=== PATIENT | female | born 1955 | race Caucasian/White ===

== ENCOUNTER 2018-03-15 09:03 | Emergency (ER) | payer BC ==
[2018-03-15 09:29] VITALS: BP 132/64
--- NOTE | 2018-03-15 09:59 | UC ---
UC General HPI - HPI Summary HPI Summary: Pt presents with two c/o. 1. Pt c/o sudden onset of painful, itchy, blister rash on forehead and right eyelid and eye. 2. pt c/o burning with urination, vaginal discomfort, and redness. Pt was seen by performance improvement analyst porvider, given " antibiotic cream" , then given antifungal cream. Pt states pain improved after using antibiotic cream but has returned. - History of Current Complaint Chief Complaint: UCSkin Stated Complaint: SKIN CONCERN Time Seen by Provider: 03/15/18 09:51 Hx Obtained From: Patient Hx Last Menstrual Period: 2009 Onset/Duration: Sudden Onset, Lasting Days, Still Present, Worse Since - osnet Timing: Constant Onset Severity: Mild Current Severity: Moderate Pain Intensity: 4 Associated Signs & Symptoms: Positive: Dysuria, Other - rash face/forehead and right eye - Allergy/Home Medications Allergies/Adverse Reactions: Allergies Allergy/AdvReac Type Severity Reaction Status Date / Time azithromycin Allergy Rash Verified 03/15/18 09:33 erythromycin base Allergy Rash Verified 03/15/18 09:33 Penicillins Allergy Rash Verified 03/15/18 09:33 sulfamethoxazole Allergy Rash Verified 03/15/18 09:33 [From Bactrim] trimethoprim [From Bactrim] Allergy Rash Verified 03/15/18 09:33 Home Medications: Home Medications Albuterol HFA INHALER* [Ventolin HFA Inhaler*] 2 puff INH Q4H PRN 03/15/18 [ History Confirmed 03/15/18] Bisoprolol TAB* [Zebeta TAB*] 10 mg PO DAILY 03/15/18 [History Confirmed ] Calcium Carb, Citrate/Vit D3 [Calcium+D3 Gradual Releas] 1 tab PO DAILY [History Confirmed 03/15/18] Clotrimazole/Betamethasone* [Lotrisone Cream*] 1 applic TOPICAL BID 03/15/18 [ History Confirmed 03/15/18] Fluticasone NASAL SPRAY 50MCG* [Flonase NASAL SPRAY 50MCG*] 2 spray BOTH NARES DAILY PRN 03/15/18 [History Confirmed 03/15/18] Fluticasone-Salmeterol 250-50* [Advair Diskus 250-50*] 1 puff INH BID 03/15/18 [ History Confirmed 03/15/18] Furosemide TAB* [Lasix TAB*] 40 mg PO DAILY PRN 03/15/18 [History Confirmed 12/22] Glucosam/Chondr/Collagn/Hyalur [Th Glucosamine/Chondroiti] 1 cap PO DAILY [History Confirmed 03/15/18] LevoCETirizine TAB (NF) [Xyzal TAB (NF)] 5 mg PO DAILY PRN 03/15/18 [History Confirmed 03/15/18] Meclizine TAB* [Antivert 12.5 TAB*] 12.5 mg PO TID PRN 03/15/18 [History Confirmed 03/15/18] Mepolizumab (NF) [Nucala (NF)] 100 mg SC SEE INSTRUCTIONS 03/15/18 [History Confirmed 03/15/18] Montelukast Sodium TAB* [Singulair TAB*] 10 mg PO DAILY 03/15/18 [History Confirmed 03/15/18] Multivitamins/Minerals TAB* [Theragran/minerals TAB*] 1 tab PO DAILY 03/15/18 [ History Confirmed 03/15/18] Terconazole 20 gm VG QPM 03/15/18 [History Confirmed 03/15/18] Turmeric 400 mg PO DAILY 03/15/18 [History Confirmed 03/15/18] Zolpidem TAB* [Ambien TAB*] 5 mg PO BEDTIME PRN 03/15/18 [History Confirmed 12/22] celeCOXIB CAP* [CeleBREX CAP*] 200 mg PO DAILY PRN 03/15/18 [History Confirmed 03/15/18] PMH/Surg Hx/FS Hx/Imm Hx Previously Healthy: Yes - Surgical History Surgical History: Yes Surgery Procedure, Year, and Place: left mastectomy with reconstruction 1997. sinus surgery 2010. 2010 - Family History Known Family History: Positive: None, Non-Contributory Family History: no known cardio-vascular issues run in family lineage - Social History Occupation: Works From/At Home Lives: With Family Alcohol Use: Rare Substance Use Type: None Smoking Status (MU): Never Smoked Tobacco Have You Smoked in the Last Year: No - Immunization History Most Recent Influenza Vaccination: current Most Recent Pneumonia Vaccination: current Review of Systems All Other Systems Reviewed And Are Negative: Yes Constitutional: Positive: Fatigue Skin: Positive: Negative Eyes: Positive: Eye Redness, Other - rash ENT: Positive: Negative Respiratory: Positive: Negative Cardiovascular: Positive: Negative Gastrointestinal: Positive: Negative Genitourinary: Positive: Dysuria, Vaginal/Penile Burning, Vaginal/Penile Tenderness Motor: Positive: Negative Neurovascular: Positive: Negative Musculoskeletal: Positive: Negative Neurological: Positive: Negative Psychological: Positive: Negative Is Patient Immunocompromised?: No Physical Exam Triage Information Reviewed: Yes Appearance: Pain Distress Vital Signs: Initial Vital Signs Temp 97.6 F 03/15/18 09:21 Pulse 72 03/15/18 09:21 Resp 16 03/15/18 09:21 BP 132/64 03/15/18 09:21 Pulse Ox 97 03/15/18 09:21 Vital Signs Reviewed: Yes Eyes: Positive: Other: - scleritis right eye, raised vessicle on right eye, ENT Exam: Normal Dental Exam: Normal Neck exam: Normal Respiratory: Positive: No respiratory distress Musculoskeletal Exam: Normal Neurological Exam: Normal Psychological Exam: Normal Skin: Positive: Rashes - erythematous, raised with fluid filled vessicle on forehead right of center, that extends to right inner corner of eye and right eye lid and appears to be on right eye ball. Pt c/o the right eye is painful. Course/Dx - Differential Dx - Multi-Symptom Differential Diagnoses: Urinary Tract Infection, Other - vaginitis - Diagnoses Provider Diagnosis: Shingles rash, Vaginal pain Discharge - Sign-Out/Discharge Documenting (check all that apply): Patient Departure All imaging exams completed and their final reports reviewed: No Studies - Discharge Plan Condition: Stable Disposition: HOME Patient Education Materials: Shingles (ED), Vaginitis (ED) Referrals: Hannah Perez MD [Medical Doctor] - 03/15/18 Kenny Howe MD [Primary Care Provider] - If Needed Additional Instructions: PLEASE GO DIRECTLY TO DR. PEREZ'S OFFICE. PLEASE FOLLOW UP WITH YOUR MAKE READY MECHANIC PROVIDER SOON POSSIBLE. - Billing Disposition and Condition Condition: STABLE Disposition: Home
== END 2018-03-15 10:14 | disposition home or self-care (01) ==
LOC: UCCORT 09:03
DX: B02.9 Zoster without complications (principal); R10.2 Pelvic and perineal pain; Z88.0 Allergy status to penicillin; Z88.1 Allergy status to other antibiotic agents
CPT/HCPCS: 81003; 87491; 87591; 99212; G0463

== ENCOUNTER 2018-09-28 11:41 | Emergency (ER) | payer BC, OTHER ==
[2018-09-28 12:38] VITALS: BP 150/72
--- NOTE | 2018-09-28 12:43 | UC ---
Shortness of Breath HPI - HPI Summary HPI Summary: 63 year old female with a history of superficial phlebitis s/p surgical treatment last year who presents with bilateral lower leg pain and shortness of breath. She denies chest pain nor hemoptysis. She states the leg pain developed about two days ago and the shortness of breath while ambulating from the waiting room to the examining room. She denies any known history of DVT nor PE. Has never been on anticoagulants but dose take aspirin. - History of Current Complaint Chief Complaint: UCLowerExtremity Stated Complaint: BILATERAL LEG PAIN Time Seen by Provider: 09/28/18 12:42 Hx Obtained From: Patient Hx Last Menstrual Period: 2009 Onset/Duration: Gradual Onset Dyspnea At: Exertion Associated Signs & Symptoms: Positive: Calf Pain/Swelling - Risk Factors Pulmonary Embolism: Negative Cardiac: Negative - Allergy/Home Medications Allergies/Adverse Reactions: Allergies Allergy/AdvReac Type Severity Reaction Status Date / Time azithromycin Allergy Rash Verified 03/15/18 09:33 erythromycin base Allergy Rash Verified 03/15/18 09:33 Penicillins Allergy Rash Verified 03/15/18 09:33 sulfamethoxazole Allergy Rash Verified 03/15/18 09:33 [From Bactrim] trimethoprim [From Bactrim] Allergy Rash Verified 03/15/18 09:33 Home Medications: Home Medications Aspirin 81 mg CHEW TAB* [Aspirin Low Dose TAB*] 4 tab PO DAILY 09/28/18 [ History Confirmed 09/28/18] PMH/Surg Hx/FS Hx/Imm Hx Previously Healthy: Yes Respiratory History: Pneumonia - Chronic eosinophillic pneumonia - Surgical History Surgical History: Yes Surgery Procedure, Year, and Place: left mastectomy with reconstruction 1997. sinus surgery 2010. Novasure 2010. varicose vein surgery about 1 year ago. breast implant removed august 2018 - Family History Known Family History: Positive: None, Non-Contributory Family History: no known cardio-vascular issues run in family lineage - Social History Alcohol Use: Rare Substance Use Type: None Smoking Status (MU): Never Smoked Tobacco Have You Smoked in the Last Year: No - Immunization History Most Recent Influenza Vaccination: current Most Recent Pneumonia Vaccination: current Review of Systems All Other Systems Reviewed And Are Negative: Yes Constitutional: Positive: Negative Skin: Positive: Negative Eyes: Positive: Negative ENT: Positive: Negative Respiratory: Positive: Shortness Of Breath Cardiovascular: Positive: Negative Gastrointestinal: Positive: Negative Genitourinary: Positive: Negative Motor: Positive: Negative Neurovascular: Positive: Negative Musculoskeletal: Positive: Calf Tenderness Neurological: Positive: Negative Psychological: Positive: Negative Is Patient Immunocompromised?: No Physical Exam Triage Information Reviewed: Yes Appearance: Well-Appearing, No Pain Distress Vital Signs: Initial Vital Signs Temp 97.9 F 09/28/18 12:30 Pulse 68 09/28/18 12:30 Resp 18 09/28/18 12:30 BP 150/72 09/28/18 12:30 Pulse Ox 99 09/28/18 12:30 Vital Signs Reviewed: Yes Eye Exam: Normal ENT Exam: Normal Neck: Positive: Supple, Nontender, No Lymphadenopathy Respiratory: Positive: Chest non-tender, Lungs clear, Normal breath sounds, No respiratory distress Cardiovascular: Positive: RRR, No Murmur, Pulses Normal Abdomen Description: Positive: Nontender, Soft Musculoskeletal: Positive: Strength Intact, No Edema, Other: - no palpable cords , no erythema nor swelling of lower extremities.. Negative: Edema @ Neurological Exam: Normal Psychological Exam: Normal Skin Exam: Normal Shortness of Breath Dx - Course Course Of Treatment: Patient with bilateral lower leg pain and shortness of breath. Requires further evaluation including CTA to rule out PE. Offered transportation via ambulance to the ED, declines. States she will have her take her and understands concern for life threatening issues including deep vein thrombosis and pulmonary embolus. - Differential Dx/Diagnosis Differential Diagnosis/HQI/PQRI: Pneumonia, Pulmonary Embolism, Other - Deep Vein Thrombosis Provider Diagnosis: Shortness of breath on exertion Discharge - Sign-Out/Discharge Documenting (check all that apply): Patient Departure All imaging exams completed and their final reports reviewed: No Studies - Discharge Plan Condition: Guarded Disposition: HOME-RECOMMEND TO ED Patient Education Materials: Shortness of Breath (ED) Referrals: Kenny Howe MD [Primary Care Provider] - Additional Instructions: Report directly to the ED for further testing. - Billing Disposition and Condition Condition: GUARDED Disposition: Home-Recommend to ED
== END 2018-09-28 13:00 | disposition home health service (06) ==
LOC: UCCORT 11:41
DX: R06.02 Shortness of breath (principal); M79.605 Pain in left leg; M79.604 Pain in right leg; Z86.79 Personal history of other diseases of the circulatory system
CPT/HCPCS: 99212; G0463

== ENCOUNTER 2019-01-27 10:18 | Emergency (ER) | payer BC ==
--- NOTE | 2019-01-27 10:55 | UC ---
Complaint Female HPI - HPI Summary HPI Summary: 63 year old female presents with complaint of dysuria for two days. She was evaluated by her burglar alarm inspector two weeks ago and had blood in her urine and was prescribed Macrobid. States she did feel better then sx of dysuria returned two days ago. Has been diagnoses with vulvodynia. Additionally, she requests her mastectomy scar on the left be checked due to pain. Had an implant removed this past August that was leaking. Additionally, she is requesting a refill of Zolpidem. - History Of Current Complaint Stated Complaint: URINARY Time Seen by Provider: 01/27/19 10:52 Hx Obtained From: Patient Hx Last Menstrual Period: 2009 - Allergies/Home Medications Allergies/Adverse Reactions: Allergies Allergy/AdvReac Type Severity Reaction Status Date / Time azithromycin Allergy Rash Verified 01/27/19 11:01 erythromycin base Allergy Rash Verified 01/27/19 11:01 Penicillins Allergy Rash Verified 01/27/19 11:01 sulfamethoxazole Allergy Rash Verified 01/27/19 11:01 [From Bactrim] trimethoprim [From Bactrim] Allergy Rash Verified 01/27/19 11:01 Home Medications: Home Medications Amitriptyline HCl 25 mg PO DAILY 01/27/19 [History Confirmed 01/27/19] L.acidoph,Paracasei, B.lactis [Probiotic] 1 each PO DAILY 01/27/19 [History Confirmed 01/27/19] PMH/Surg Hx/FS Hx/Imm Hx Previously Healthy: Yes Other GI/ History: Vulvodynia Cancer History: Breast Cancer - Surgical History Surgical History: Yes Surgery Procedure, Year, and Place: left mastectomy with reconstruction 1997. sinus surgery 2010. Novasure 2010. varicose vein surgery about 1 year ago. breast implant removed august 2018 - Family History Known Family History: Positive: None, Non-Contributory Family History: no known cardio-vascular issues run in family lineage - Social History Alcohol Use: Rare Substance Use Type: None Smoking Status (MU): Never Smoked Tobacco Have You Smoked in the Last Year: No - Immunization History Most Recent Influenza Vaccination: current Most Recent Pneumonia Vaccination: current Review of Systems All Other Systems Reviewed And Are Negative: Yes Constitutional: Negative: Fever, Chills, Fatigue Skin: Negative: Rash, Bruising Eyes: Positive: Negative ENT: Positive: Negative Respiratory: Positive: Negative Cardiovascular: Positive: Negative Gastrointestinal: Positive: Negative Genitourinary: Positive: Dysuria, Urgency. Negative: Hematuria, Frequency Motor: Positive: Negative Neurovascular: Positive: Negative Musculoskeletal: Positive: Negative Neurological: Positive: Negative Psychological: Positive: Negative Is Patient Immunocompromised?: No Physical Exam Triage Information Reviewed: Yes Appearance: Well-Appearing, No Pain Distress, Well-Nourished Vital Signs Reviewed: Yes Eye Exam: Normal ENT: Positive: Normal ENT inspection Neck: Positive: Supple, Nontender, No Lymphadenopathy Respiratory: Positive: Lungs clear, Normal breath sounds, No respiratory distress. Negative: Crackles, Rhonchi, Wheezing Cardiovascular: Positive: RRR, No Murmur Abdomen Description: Positive: Nontender, Soft. Negative: Distended, Guarding Musculoskeletal: Positive: ROM Intact, Other: - left chest wall s/p mastectomy, no erythema, warmth nor fluctuance of site. No masses nor swelling palpable. Nurse Noreen Navarro in during chest examination. Neurological Exam: Normal Psychological Exam: Normal Skin Exam: Normal Skin: Negative: Rashes, Significant Lesion(s) Complaint Female Dx - Course Course Of Treatment: Urine shows trace blood, 1+ leuks, nitrite negative. Treated empirically. Instructed to contact her PCP for her Zolpidem refill. No concerning findings on exam of left chest scar/mastectomy site. - Differential Dx/Diagnosis Differential Diagnosis/HQI/PQRI: Other - Vulvodynia Provider Diagnosis: Urinary tract infection, Scar conditions/skin fibrosis Discharge ED - Sign-Out/Discharge Documenting (check all that apply): Patient Departure All imaging exams completed and their final reports reviewed: No Studies - Discharge Plan Condition: Stable Disposition: HOME Prescriptions: Nitrofurantoin Monohyd/M-Cryst [Macrobid 100 mg Capsule] 100 mg PO BID 10 Days # 20 cap Phenazopyridine 200 mg (NF) [Pyridium 200 MG tab *] 200 mg PO TID PRN 2 Days #6 tab PRN Reason: Pain - Mild Patient Education Materials: Urinary Tract Infection in Women (ED) Referrals: Kenny Howe MD [Primary Care Provider] - Additional Instructions: Drink plenty of water. We are treating you for a urinary tract infection. A urine culture is being sent and results are pending. Follow-up with your Manager Culinary if your symptoms persist or worsen. Contact your Primary Care physician for a refill of your Zolpidem. - Billing Disposition and Condition Condition: STABLE Disposition: Home
[2019-01-27 11:01] VITALS: BP 119/57
== END 2019-01-27 12:14 | disposition home or self-care (01) ==
LOC: UCCORT 10:18
DX: N39.0 Urinary tract infection, site not specified (principal); N94.819 Vulvodynia, unspecified; N64.4 Mastodynia; Z88.1 Allergy status to other antibiotic agents; Z88.0 Allergy status to penicillin; Z88.2 Allergy status to sulfonamides; Z85.3 Personal history of malignant neoplasm of breast
CPT/HCPCS: 81003; 87077; 87086; 87186; 99212; G0463

== ENCOUNTER 2019-02-21 10:38 | Day surgery (SDC) | payer BC ==
[~2019-02-21 10:38] MED LIST: Buffered Lidocaine 1% SYRIN* 1 ML/SYRINGE INTRADERM ONE; Dexamethasone IV* 4 MG/ML 1 ML (4 MG) IV SLOW PU ONE; Lactated Ringers 1000 ML Bag* 1,000 ML IV SCH
[2019-02-21] MEDS ORDERED: Dexamethasone IV* 4 MG/ML 1 ML (4 MG) ONE (10:39)
[2019-02-21] MEDS ORDERED: Clindamycin 900 MG/D5W BAG(*) 900 MG/50 ML BAG IVPB ONE (10:46)
[2019-02-21] MEDS ORDERED: Bupivacaine 0.25% SDV* 30 ML ONE (11:01)
[2019-02-21] MEDS ORDERED: Ondansetron INJ* 2 MG/ML VIAL ONE (11:15)
[2019-02-21] MEDS ORDERED: Propofol* 10 MG/ML 20 ML BTL ONE (11:15)
[2019-02-21] MEDS ORDERED: fentaNYL* 50 MCG/ML 2 ML VIAL (100 MCG VIAL) ONE (11:15)
[2019-02-21] MEDS ORDERED: Midazolam* 1 MG/ML 5 ML VIAL (5 MG) ONE (11:15)
[2019-02-21] MEDS ORDERED: Naloxone* 0.4 MG/ML 1 ML VIAL IV PRN (11:45)
[2019-02-21 12:48] VITALS: BP 126/63
--- NOTE | 2019-02-21 21:03 | OP ---
DATE OF OPERATION: 02/21/19 [facility] DATE OF : 53 SURGEON: Da Mora MD INFANT ROOM TEACHER: TAIWO Galeano ANESTHESIOLOGIST: Dr. Young. ANESTHESIA: Local MAC. PRE-OP DIAGNOSIS: Left middle finger extensor tendon laceration over the dorsum of the middle phalanx. POST-OP DIAGNOSIS: Left middle finger extensor tendon laceration over the dorsum of the middle phalanx. OPERATIVE PROCEDURE: Left middle finger extensor tendon repair. INDICATIONS: Ms. Posey had the laceration; it is probably a partial laceration. She then went on to complete the rupture, which has quite an extension lag. We talked about options. She wanted it to have repaired. We discussed the difficulty that can be inherent in repairing these and getting an excellent outcome due to adhesions and lengthening of the tendon. She wants to proceed. ESTIMATED BLOOD LOSS: 2 mL. COMPLICATIONS: None. FINDINGS: See above and below. DESCRIPTION OF PROCEDURE: Ms. Posey was seen in the preoperative holding area. The correct site, side, and procedure were identified. We came back to the operating room where a digital block was performed. The arm was then prepped and draped in the usual fashion. Time-out was performed. A finger tourniquet was placed. I went ahead and utilized her prior traumatic wound and turned it into an 8-shaped incision over the dorsum of the finger. Dissection was carried down. The laceration was noted, the scar tissue between the tendon edges was debrided. The 2 ends of the tendon were sewed together using 4-0 Ethibond suture in a Silfverskiold type manner. This provided an excellent repair. Wound was irrigated out. The skin was closed with 4-0 nylon suture. She was placed in the Alumafoam splint, holding the finger straight at the PIP and DIP joint. She was taken to the recovery room in stable condition. [id number]/[facility] #: [id number] MTDD
== END 2019-02-21 12:50 | disposition home or self-care (01) ==
LOC: OREAST 10:38
PROVIDERS: ATTEND Orthopaedic Surgery Hand Surgery
DX: S61.213A Laceration without foreign body of left middle finger without damage to nail, initial encounter (principal); M20.012 Mallet finger of left finger(s); I51.81 Takotsubo syndrome; J45.909 Unspecified asthma, uncomplicated; E78.5 Hyperlipidemia, unspecified; K21.9 Gastro-esophageal reflux disease without esophagitis; X58.XXXA Exposure to other specified factors, initial encounter; Y92.9 Unspecified place or not applicable; Z85.3 Personal history of malignant neoplasm of breast; Z88.1 Allergy status to other antibiotic agents; Z88.0 Allergy status to penicillin; Z88.2 Allergy status to sulfonamides; Z79.51 Long term (current) use of inhaled steroids
CPT/HCPCS: J1100; J2250; J2405; J2704; J3010; J3490

== ENCOUNTER 2019-03-12 09:44 | Emergency (ER) | payer BC ==
--- OUTSIDE RECORDS SUMMARY | 2019-03-12 10:05 | XMS REPORT | Continuity of Care Document ---
:1955 External Reference #:[id number] Author Name Colton Leiva MD (transmitted by agent of provider Hai Lynn) Address [address] [place] [address] Care Team Providers Name Role Phone Kenny Howe MD - Family Care Team Information Services Mgr [phone] Medicine Hannah Romeo MD - Care Team Information Services Mgr [phone] Ophthalmology Adrian Carey MD - Gastroenterology Care Team Information Services Mgr Duane Brewer MD - Otolaryngology Care Team Information Services Mgr [phone] Len Ferguson MD - Plastic Care Team Information Services Mgr [phone] Surgery Problems Active Problems Provider Date Takotsubo cardiomyopathy Kenny Howe MD Onset: 10/29/2014 Insomnia Estella Mohamud PA Onset: 10/29/2014 Allergic rhinitis Kenny Howe MD Onset: 10/29/2014 Eruption Kenny Howe MD Onset: 10/29/2014 Asthma without status asthmaticus Kenny Howe MD Onset: 10/29/2014 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 Carcinoma of breast Kenny Howe MD Onset: 10/29/2014 Edema Kenny Howe MD Onset: 01/18/2011 Acute sinusitis Kenny Howe MD Onset: 01/18/2011 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 Kenny Howe MD 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 Onset: 01/18/2011 Social History Type Date Description Comments Sex Unknown ETOH Use Occasionally consumes alcohol ETOH Use Occasionally consumes alcohol Tobacco Use Start: Unknown Patient has never smoked Recreational Drug Use Denies Drug Use Tobacco Use Start: Unknown Patient has never smoked Smoking Status Reviewed: 02/11/19 Patient has never smoked Exercise Type/Frequency Does not exercise Allergies, Adverse Reactions, Alerts Active Allergies Reaction Severity Comments Date Erythromycin Urticaria 03/24/2014 Astelin Free Text 03/09/2018 Spiriva 03/09/2018 Erythromycin Free Text 03/09/2018 Penicillins Free Text Moderate 03/09/2018 Medications Active Medications SIG Qnty Indications Ordering Date Provider Celecoxib 1 by mouth every day 30caps M94.0 Kenny 02/05/2019 200mg Howe, Capsules Bisoprolol Fumarate 1 by mouth every day 90tabs Kenny 10/01/2018 5mg Howe, Tablets Zolpidem Tartrate 1 every night at 30tabs Kenny 10/01/2018 10mg bedtime Howe, Tablets Ambien CR 1 by mouth every day 30tabs G47.00 Kenny 01/24/2018 12.5mg Howe, Tablets ER Omeprazole 1 by mouth every day 30caps Kenny 11/14/2017 20mg Howe, Capsules DR COTTON Cyclobenzaprine HCL 1 by mouth three 30tabs M62.838 Kenny 09/01/2017 5mg times a day Howe, Tablets Celebrex 1 by mouth every day 30caps Kenny 06/15/2017 200mg Capsules MD Carley Nucala injections per Dr. Cox 03/07/2017 100mg Solution Kheti Carley, Rec MD Pereyra 1 daily 90tabs Kenny 06/30/2015 10mg Tablets MD Carley Advair Diskus 1 puff twice a day 60units Kenny 06/03/2015 Carley 250-50mcg/Dose Aerosol Calcium 1 tid Kenny 11/06/2014 Carbonate/Vitamind MD Carley 500mg Tablets Meclizine HCL 1 four times a day 30tabs J30.1 Kenny 09/17/2014 25mg as needed vertigo, Howe, Tablets when traveling Levocetirizine 1 every day as 90tabs J30.1 Kenny 09/09/2014 Dihydrochloride needed Howe, 5mg Tablets Proair HFA 2 puffs every 4 3units Carley, 04/24/2013 108(90Base) hours as needed MD Kenny mcg/Act Aerosol Glucosamine 2 by mouth every day Unknown Chondroitin 500 Complex 500Comp Capsules Multi Vitamin 1 a day Unknown Tablets Fluticasone 2 puffs each nare 3units J30.1 Kenny Propionate every in the morning Howe, 50mcg/Act Suspension Montelukast Sodium one tablet at 30tabs Kenny 10mg bedtime Howe, Tablets Amitriptyline HCL take 1 tablet by Unknown 50mg mouth at bedtime Tablets Hydrocortisone apply to affected Unknown 2.5% area twice a day Cream every other day Alternating With Clindamycin Clindamycin Phosphate Apply A Pea Sized Unknown Amount With 2% Cream Fingertip twice a day every other day Alternating With Hydrocortisone Intrarosa insert one vaginal 56units Delmy Patton 6.5mg Insert suppository every MD Patience other night History Medications Ciprofloxacin HCL 1 by mouth 20tabs K05.01 Kenny Howe, 10/18/2018 - 500mg twice a day 01/24/2019 Tablets Medications Administered in Office Medication SIG Qnty Indications Ordering Provider Date Celestone 3 mg and 3mg Colton Leiva MD 06/16/2016 Injection Immunizations CPT Code Status Date Vaccine Reaction Lot # 22258 Given 12/27/2018 Influ Virus Vaccine, risks and benefits Flu>3yr/ Quadrivalent, Split discussed [id number] Virus, [place] [address] Given 01/29/2014 Pneumococcal Conjugate Vaccine 13 Valent For Intramuscular Use 57972 Given 12/16/2013 Influenza Virus 3Yrs & Over 19375 Given 12/16/2013 Influenza Virus 3Yrs & Over 85681 Given 12/17/2012 Influenza Virus 3Yrs & Over 04458 Given 12/16/2011 Influenza Virus 3Yrs & Over 43393 Given 12/02/2010 Influenza Virus 3Yrs & Over 92870 Given 10/27/2010 Tdap - Tetanus/Diptheria/Acellul ar Pertussis 36956 Given 12/09/2009 Influenza Virus 3Yrs & Over 07169 Given 01/01/2009 Administration Swine Flu Shot 24339 Given 12/11/2008 Influenza Virus 3Yrs & Over 60820 Given 12/06/2007 Influenza Virus 3Yrs & Over 01682 Given 12/26/2006 Influenza Virus 3Yrs & Over 99464 Given 01/12/2006 Influenza Virus 3Yrs & Over 63668 Given 12/30/2004 Influenza Virus 3Yrs & Over 05457 Given 02/18/2003 Pneumonia Vaccine 19346 Given 03/26/2001 Hepatitis A Vaccine Adult Dosage 03235 Given 03/08/2001 Hep B Pediatric/Adolescent 44685 Given 08/14/2000 Hepatitis B Flavia Adoles For Intramuscular Use 12748 Given 08/03/2000 Hepatitis A Vaccine Adult Dosage 35425 Given 07/17/2000 Hepatitis B Flavia Adoles For Intramuscular Use 80755 Given 03/21/2000 Tetanus And Diptheria (Td) For Adult Use Preservative Free 59326 Given 01/11/2000 Influenza Virus 3Yrs & Over 92645 Given 01/17/1995 Flu Vaccine Vital Signs Date Vital Result Comment 02/11/2019 1:03pm Height 65 inches 5'5" Weight 209.00 lb Heart Rate 125 /min Respiratory Rate 16 /min Body Temperature 98.6 F Pain Level 0 at use O2 % BldC Oximetry 94 % BMI (Body Mass Index) 34.8 kg/m2 02/05/2019 1:55pm Weight 209.00 lb BP Systolic 104 mmHg BP Diastolic 72 mmHg Body Temperature 96.7 F Results Test Acquired Date Facility Test Result H/L Range Note Urine Culture And 01/27/2019 [facility] Urine SEE RESULT [address] [place] [address] [phone] Poc Urinalysis 01/27/2019 [facility] Poc Negative Negative [address] Glucose, [place] [address] Urine [phone] Poc Bilirubin, Urine Negative Negative Poc Ketone, Urine Negative Negative Poc Specific [place], Urine 1.020 Normal 1.010-1.030 Poc Blood, Urine Trace-lysed Abnormal Negative Poc pH, Urine 5.5 Normal 5-9 Poc Protein, Urine Negative Negative Poc Urobilinogen, Urine 0.2 Negative Poc Nitrite, Urine Negative Negative Poc Leukocytes, Urine 1+ Abnormal Negative Poc Color, Urine Yellow Poc Clarity, Urine Clear 2 1 SEE RESULT BELOW Name: PATIENCE POSEY : [address]: Maynor Mullen MD Acct: [id number] Unit: [id number] AGE: 63 Location: [facility] Re01/27/19 SEX: F Status: DEP ER SPEC: [id number] LORAINE: 01/27/19-[address] [facility] [address]: Maynor Mullen MD REQ: [id number] RECD: 01/27/19 STATUS: ANDREW RAMOS DR: Kenny Howe MD _ SOURCE: URINE SPDC: ORDERED: Urine Culture Procedure Result Reported Site Urine Culture Final 01/29/19- 0844 ML Organism 1 ESCHERICHIA COLI [place] Count >100,000 (Many) CFU/ML 1. ESCHERICHIA COLI [facility] RX --------- ------ Ampicillin 4 S Cefazolin <=4 S Cefepime <=1 S Ceftriaxone <=1 S Ciprofloxacin <=0.25 S Gentamicin <=1 S Levofloxacin <=0.12 S Meropenem <=0.25 S Nitrofurantoin <=16 S Tetracycline <=1 S Pipercillin/Tazobactam <=4 S Trimethoprim/Sulfamethoxazole <=20 S Amoxicillin/Clavulanic Acid <=2 S Aztreonam <=1 S Contact the Microbiology Department for any additional antibiotic reporting. * [facility] - Main Lab . END OF REPORT DEPARTMENT OF PATHOLOGY, [address] [place] [address] Jose Shultz M.D. 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 [Tietze] Office Visit 10/18/2018 [facility] Primary Care Kenny K05.01 Acute gingivitis, 3:30p MD Carley non-plaque induced Office Visit 10/01/2018 [facility] Primary Care Kenny I80.00 Phlbts and thombophlb 11:45a MD Carley of superfic vessels of [facility] low extrm Assessments Date Code Description Provider 02/11/2019 M20.012 Mallet finger of left finger(s) Colton Leiva MD 02/05/2019 M94.0 Chondrocostal junction syndrome [Tietze] Kenny Howe MD 12/27/2018 Z23 Encounter for immunization Nurse Schedule Loc 73 10/18/2018 K05.01 Acute gingivitis, non-plaque induced Kenny Howe MD 10/01/2018 I80.00 Phlebitis and thrombophlebitis of Kenny Howe MD superficial vessels of [facility] Plan of Treatment Future Appointment(s):02/15/2019 9:00 am - Da Mora MD at [facility] [place]/09/2019 - Colton Leiva, MDM20.012 Mallet finger of left finger(s)New Xrays:Finger Left Middle, Ordered: 02/11/19Comments:use brace full timeFollow up:Follow up: cuco this week Functional Status Description No Information Available Mental Status Description No Information Available Referrals Description No Information Available
--- OUTSIDE RECORDS SUMMARY | 2019-03-12 10:05 | XMS REPORT | Continuity of Care Document ---
:1955 External Reference #:[id number] Author Name Colton Leiva MD (transmitted by agent of provider Hai Lynn) Address [address] [place] [address] Care Team Providers Name Role Phone Kenny Howe MD - Family Care Team Information Chemical Process Engineer [phone] Medicine Hannah Romeo MD - Care Team Information Chemical Process Engineer [phone] Ophthalmology Adrian Carey MD - Gastroenterology Care Team Information Chemical Process Engineer [phone] Duane Brewer MD - Otolaryngology Care Team Information Chemical Process Engineer [phone] Len Ferguson MD - Plastic Care Team Information Chemical Process Engineer Surgery Problems Active Problems Provider Date Takotsubo [...] smoked Recreational Drug Use Denies Drug Use Smoking Status Reviewed: 03/04/19 Patient has never smoked Exercise Type/Frequency Does not exercise Allergies, Adverse Reactions, Alerts Active Allergies Reaction Severity Comments Date Erythromycin Urticaria 03/24/2014 Astelin Free Text 03/09/2018 Spiriva 03/09/2018 Penicillins Free Text Moderate 03/09/2018 Medications Active Medications SIG Qnty Indications Ordering Date Provider Bisoprolol Fumarate 1 by mouth every 90tabs Kenny 10/01/2018 5mg day MD Carley Tablets Ambien CR 1 by mouth every 30tabs G47.00 Kenny 01/24/2018 12.5mg Tablets day MD Carley ER Nucala injections per Dr. Cox 03/07/2017 100mg Solution Rec Kheti MD Carley Advair Diskus 1 puff twice a day 60units Kenny 06/03/2015 MD Carley 250-50mcg/Dose Aerosol Calcium 1 tid Kenny 11/06/2014 Carbonate/Vitamind MD Carley 500mg Tablets Meclizine HCL 1 four times a day 30tabs J30.1 Kenny 09/17/2014 25mg as needed vertigo, MD Carley Tablets when traveling Levocetirizine 1 every day as 90tabs J30.1 Kenny 09/09/2014 Dihydrochloride needed MD Carley 5mg Tablets Proair HFA 2 puffs every 4 3units Carley, 04/24/2013 108(90Base) hours as needed MD Kenny mcg/Act Aerosol Zolpidem Tartrate ER 1 by mouth every Unknown night at bedtime 12.5mg Tablets ER Intrarosa insert one vaginal 56units Delmy Patton 6.5mg Insert suppository hernan Huggins MD other night Amitriptyline HCL take 1 tablet by Unknown 25mg mouth at bedtime Tablets Montelukast Sodium one tablet at 30tabs Kenny 10mg bedtime MD Carley Tablets Fluticasone Propionate 2 puffs each nare 3units J30.1 Kenny every in the MD Carley 50mcg/Act Suspension morning Multi Vitamin 1 a day Unknown Tablets Glucosamine 2 by mouth every Unknown Chondroitin 500 day Complex 500Comp Capsules History Medications Tramadol HCL 1 tab by mouth 15tabs Da Mora, 02/21/2019 - 50mg Tablets every 4-6 hours 03/03/2019 as needed pain Celecoxib 1 by mouth every 30caps M94.0 Kenny 02/05/2019 - 200mg Capsules day MD Carley 03/03/2019 Ciprofloxacin HCL 1 by mouth twice 20tabs K05.01 Kenny 10/18/2018 - 500mg a day MD Carley 01/24/2019 Tablets Zolpidem Tartrate 1 every night at 30tabs Kenny 10/01/2018 - 10mg bedtime MD Carley 03/04/2019 Tablets Medications Administered in Office Medication SIG Qnty Indications Ordering Provider Date Celestone 3 mg and 3mg Coltno Leiva MD 06/16/2016 Injection Immunizations CPT Code Status Date Vaccine Reaction Lot # 01860 Given 12/27/2018 Influ Virus Vaccine, risks and benefits Flu>3yr/ Quadrivalent, Split discussed [id number] Virus, [place] [address] Given 01/29/2014 Pneumococcal Conjugate Vaccine 13 Valent For Intramuscular Use 46278 Given 12/16/2013 Influenza Virus 3Yrs & Over 63909 Given 12/16/2013 Influenza Virus 3Yrs & Over 05503 Given 12/17/2012 Influenza Virus 3Yrs & Over 45510 Given 12/16/2011 Influenza Virus 3Yrs & Over 30578 Given 12/02/2010 Influenza Virus 3Yrs & Over 16693 Given 10/27/2010 Tdap - Tetanus/Diptheria/Acellul ar Pertussis 31775 Given 12/09/2009 Influenza Virus 3Yrs & Over 96282 Given 01/01/2009 Administration Swine Flu Shot 03973 Given 12/11/2008 Influenza Virus 3Yrs & Over 97027 Given 12/06/2007 Influenza Virus 3Yrs & Over 53771 Given 12/26/2006 Influenza Virus 3Yrs & Over 28506 Given 01/12/2006 Influenza Virus 3Yrs & Over 67939 Given 12/30/2004 Influenza Virus 3Yrs & Over 61166 Given 02/18/2003 Pneumonia Vaccine 18365 Given 03/26/2001 Hepatitis A Vaccine Adult Dosage 19742 Given 03/08/2001 Hep B Pediatric/Adolescent 04342 Given 08/14/2000 Hepatitis B Flavia Adoles For Intramuscular Use 45652 Given 08/03/2000 Hepatitis A Vaccine Adult Dosage 70526 Given 07/17/2000 Hepatitis B Flavia Adoles For Intramuscular Use 44880 Given 03/21/2000 Tetanus And Diptheria (Td) For Adult Use Preservative Free 30113 Given 01/11/2000 Influenza Virus 3Yrs & Over 19049 Given 01/17/1995 Flu Vaccine Vital Signs Date Vital Result Comment 03/04/2019 10:44am Height 65 inches 5'5" Weight 211.38 lb Heart Rate 89 /min BP Systolic Sitting 108 mmHg BP Diastolic Sitting 60 mmHg Body Temperature 98.5 F Pain Level 0 O2 % BldC Oximetry 97 % BMI (Body Mass Index) 35.2 kg/m2 02/15/2019 9:20am Height 65 inches 5'5" Weight 209.00 lb Heart Rate 90 /min Respiratory Rate 18 /min Pain Level 0 O2 % BldC Oximetry 97 % BMI (Body Mass Index) 34.8 kg/m2 Results Test Acquired Date Facility Test Result H/L Range Note Urine Culture And 01/27/2019 [facility] Urine SEE RESULT [address] [place] [address] [phone] Poc Urinalysis 01/27/2019 [facility] Poc Negative Negative [address] Glucose, [place] [address] Urine [phone] Poc Bilirubin, Urine Negative Negative Poc Ketone, Urine Negative Negative Poc Specific [place], Urine 1.020 Normal 1.010-1.030 Poc Blood, Urine Trace-lysed Abnormal Negative Poc pH, Urine 5.5 Normal 5-9 Poc Protein, Urine Negative Negative Poc Urobilinogen, Urine 0.2 Negative Poc Nitrite, Urine Negative Negative Poc Leukocytes, Urine 1+ Abnormal Negative Poc Color, Urine Yellow Poc Clarity, Urine Clear 2 1 SEE RESULT BELOW Name: PATIENCE POSEY Latonya : [address]: Maynor Mullen MD Acct: [id number] Unit: [id number] AGE: 63 Location: [facility] Re01/27/19 SEX: F Status: DEP ER SPEC: [id number] LORAINE: 01/27/19-[address] [facility] DR: Maynor Mullen MD REQ: [id number] RECD: 01/27/19 STATUS: ANDREW BURNS DR: Kenny Howe MD _ SOURCE: URINE SPDESC: ORDERED: Urine Culture Procedure Result Reported Site Urine Culture Final 01/29/19- 0844 ML Organism 1 ESCHERICHIA COLI [place] Count >100,000 (Many) CFU/ML 1. ESCHERICHIA COLI [...] . END OF REPORT DEPARTMENT OF PATHOLOGY, [address] [place] [address] Jose Shultz M.D. Director [facility] # [id number] 2 Cop Examiner: [id number] Procedures Date Code Description Status 02/21/2019 56348 Repair Extensor Tendon Hand W/O Free Graft Completed 02/21/2019 57695 Repair Extensor Tendon Hand W/O Free Graft Completed 02/11/2019 73258 Rad Exam; Fingers Completed 06/28/2018 [id number] Mammogram Completed 05/10/2018 [id number] Mammogram Completed 03/16/2018 [id number] Diabetic Retinal Eye Exam Completed Medical Devices Description No Information Available Encounters Type Date Location Provider Dx Diagnosis Office Visit 02/15/2019 [facility] Da Mora M20.012 Mallet finger of 9:00a at [place] left finger(s) S66.323A Lacerat extn musc/fasc/tend l mid finger at wrs/hnd lv, init Office Visit 02/11/2019 [facility] M20.012 Mallet finger of 1:00p Orthopedics at [place] left finger(s) [place] Office Visit 02/05/2019 [facility] Primary Care Kenny M94.0 Chondrocostal 1:45p Carley, junction syndrome [Alyssa] Office Visit 10/18/2018 [facility] Primary Care Kenny K05.01 Acute gingivitis, 3:30p Carley, non-plaque induced Office Visit 10/01/2018 [facility] Primary Care Kenny I80.00 Phlbts and 11:45a tarsha Howe of superfic vessels of [facility] low extrm Assessments Date Code Description Provider 03/04/2019 S66.323D Laceration of extensor muscle, fascia and Colton Leiva MD tendon of left middle finger at wrist and hand level, subsequent encounter 02/21/2019 S66.323A Laceration of extensor muscle, fascia and Alexandra Alegria RPA-C tendon of left middle finger at wrist and hand level, initial encounter 02/21/2019 S66.323A Laceration of extensor muscle, fascia and Da Mora MD tendon of left middle finger at wrist and hand level, initial encounter 02/15/2019 M20.012 Mallet finger of left finger(s) Da Mora MD 02/15/2019 S66.323A Laceration of extensor muscle, fascia and Da Mora MD tendon of left middle finger at wrist and hand level, initial encounter 02/11/2019 M20.012 Mallet finger of left finger(s) Colton Leiva MD 02/05/2019 M94.0 Chondrocostal junction syndrome [Tietze] Kenny Howe MD 12/27/2018 Z23 Encounter for immunization Nurse Schedule Loc 73 10/18/2018 K05.01 Acute gingivitis, non-plaque induced Kenny Howe MD 10/01/2018 I80.00 Phlebitis and thrombophlebitis of Kenny Howe MD superficial vessels of [facility] Plan of Treatment Future Appointment(s):03/15/2019 10:15 am - Da Mora MD at [facility] [place]/30/2019 - JOEL Heredia66.323D Laceration of extensor muscle, fascia and tendon of left middle finger at wrist and hand level , subsequent encounterFollow up:Follow up: cuco 2 weeks Functional Status Description No Information Available Mental Status Description No Information Available Referrals Description No Information Available
--- OUTSIDE RECORDS SUMMARY | 2019-03-12 10:05 | XMS REPORT | Continuity of Care Document ---
:1955 External Reference #:[id number] Author Name Da Mora MD (transmitted by agent of provider Hai Lynn) Address [address] [place] [id number] Care Team Providers Name Role Phone Kenny Howe MD - Family Care Team Information Site Promotion Agent Medicine Hannah Romeo MD - Care Team Information Site Promotion Agent [phone] Ophthalmology Adrian Carey MD - Gastroenterology Care Team Information Site Promotion Agent [phone] Duane Brewer MD - Otolaryngology Care Team Information Site Promotion Agent [phone] Len Ferguson MD - Plastic Care Team Information Site Promotion Agent Surgery Problems Active Problems Provider Date Takotsubo [...] Patient has never smoked Smoking Status Reviewed: 02/15/19 Patient has never smoked Exercise Type/Frequency Does [...] 30caps Kenny 11/14/2017 20mg Howe, Capsules DR Cyclobenzaprine HCL 1 by mouth three 30tabs M62.838 Kenny 09/01/2017 5mg times a day Howe, Tablets Celebrex 1 by mouth every day 30caps Kenny 06/15/2017 200mg Capsules MD Carley Nucala injections per Dr. Cox 03/07/2017 100mg Solution Kheti Carley Rec MD Pereyra 1 daily 90tabs Kenny [...] as 90tabs J30.1 Kenny 09/09/2014 Dihydrochloride needed Carley 5mg Tablets Proair HFA 2 puffs every 4 3units Carley, 04/24/2013 108(90Base) hours as needed MD Kenny mcg/Act Aerosol Glucosamine 2 by mouth every day Unknown Chondroitin 500 Complex 500Comp Capsules Multi Vitamin 1 a day Unknown Tablets Fluticasone 2 puffs each nare 3units J30.1 Kenny Propionate every in the morning Carley 50mcg/Act Suspension Montelukast Sodium one tablet at [...] Insert suppository hernan Huggins MD other night History Medications Ciprofloxacin HCL 1 by mouth 20tabs K05.01 Kenny Howe, 10/18/2018 - 500mg twice a day 01/24/2019 Tablets Medications Administered in Office Medication SIG Qnty Indications Ordering Provider Date Celestone 3 mg and 3mg Colton Leiva MD 06/16/2016 Injection Immunizations CPT Code Status Date Vaccine Reaction Lot # 62522 Given 12/27/2018 Influ Virus Vaccine, risks and benefits Flu>3yr/ Quadrivalent, Split discussed [id number] Virus, [place] [address] Given 01/29/2014 Pneumococcal Conjugate Vaccine 13 Valent For Intramuscular Use 96809 Given 12/16/2013 Influenza Virus 3Yrs & Over 21613 Given 12/16/2013 Influenza Virus 3Yrs & Over 42479 Given 12/17/2012 Influenza Virus 3Yrs & Over 13668 Given 12/16/2011 Influenza Virus 3Yrs & Over 99136 Given 12/02/2010 Influenza Virus 3Yrs & Over 97535 Given 10/27/2010 Tdap - Tetanus/Diptheria/Acellul ar Pertussis 91031 Given 12/09/2009 Influenza Virus 3Yrs & Over 71207 Given 01/01/2009 Administration Swine Flu Shot 37603 Given 12/11/2008 Influenza Virus 3Yrs & Over 94364 Given 12/06/2007 Influenza Virus 3Yrs & Over 26670 Given 12/26/2006 Influenza Virus 3Yrs & Over 84911 Given 01/12/2006 Influenza Virus 3Yrs & Over 46895 Given 12/30/2004 Influenza Virus 3Yrs & Over 16675 Given 02/18/2003 Pneumonia Vaccine 70859 Given 03/26/2001 Hepatitis A Vaccine Adult Dosage 47876 Given 03/08/2001 Hep B Pediatric/Adolescent 29121 Given 08/14/2000 Hepatitis B Flavia Adoles For Intramuscular Use 53835 Given 08/03/2000 Hepatitis A Vaccine Adult Dosage 19634 Given 07/17/2000 Hepatitis B Flavia Adoles For Intramuscular Use 42679 Given 03/21/2000 Tetanus And Diptheria (Td) For Adult Use Preservative Free 36521 Given 01/11/2000 Influenza Virus 3Yrs & Over 96910 Given 01/17/1995 Flu Vaccine Vital Signs Date Vital Result Comment 02/15/2019 9:20am Height 65 inches 5'5" Weight 209.00 lb Heart Rate 90 /min Respiratory Rate 18 /min Pain Level 0 O2 % BldC Oximetry 97 % BMI (Body Mass Index) 34.8 kg/m2 02/11/2019 1:03pm Height 65 inches 5'5" Weight 209.00 lb Heart Rate 125 /min Respiratory Rate 16 /min Body Temperature 98.6 F Pain Level 0 at use O2 % BldC Oximetry 94 % BMI (Body Mass Index) 34.8 kg/m2 Results Test Acquired Date Facility Test Result H/L Range Note Urine Culture And 01/27/2019 [facility] Urine SEE RESULT [address] [place] [address] [phone] Poc Urinalysis 01/27/2019 [facility] Poc Negative Negative [address] Glucose, [place] [address] Urine [phone] Poc Bilirubin, Urine Negative Negative Poc Ketone, Urine Negative Negative Poc Specific [place], Urine 1.020 Normal 1.010-1.030 Poc Blood, Urine Trace-lysed Abnormal Negative Poc pH, Urine 5.5 Normal 5-9 Poc Protein, Urine Negative Negative Poc Urobilinogen, Urine 0.2 Negative Poc Nitrite, Urine Negative Negative Poc Leukocytes, Urine 1+ Abnormal Negative Poc Color, Urine Yellow Poc Clarity, Urine Clear 2 1 SEE RESULT BELOW Name: PATIENCE POSEY : [address]: Maynor Mullen MD Acct: [id number] Unit: [id number] AGE: 63 Location: [facility] Re01/27/19 SEX: F Status: DEP ER SPEC: [id number] LORAINE: 01/27/19-[address] [facility] [address]: Maynor Mullen MD REQ: [id number] RECD: 01/27/19 STATUS: COMP [facility] DR: Kenny Howe MD _ SOURCE: URINE SPDESC: ORDERED: Urine Culture Procedure Result Reported Site Urine Culture Final 01/29/19- 0844 ML Organism 1 ESCHERICHIA COLI [place] Count >100,000 (Many) CFU/ML 1. ESCHERICHIA COLI [...] . END OF REPORT DEPARTMENT OF PATHOLOGY, [address] [place] [address] Jose Shultz M.D. Director [facility] # [id number] 2 Clerk Television Production: [id number] Procedures Date Code Description Status 02/11/2019 01035 Rad Exam; Fingers Completed 06/28/2018 [id number] Mammogram Completed 05/10/2018 [id number] Mammogram Completed 03/16/2018 [id number] Diabetic Retinal Eye Exam Completed Medical Devices Description No Information Available Encounters Type Date Location Provider Dx Diagnosis Office Visit 02/11/2019 [facility] Colton Leiva, M20.012 Mallet finger of 1:00p at [facility] left finger(s) Office Visit 02/05/2019 [facility] Kenny 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 [Tietze] Office Visit 10/18/2018 [facility] Kenny K05.01 Acute gingivitis, 3:30p MD Carley non-plaque induced Office Visit 10/01/2018 [facility] Kenny I80.00 Phlbts and 11:45a MD Carley thombophlb of superfic vessels of [facility] low extrm Assessments Date Code Description Provider 02/15/2019 M20.012 Mallet finger of left finger(s) Da Mora MD 02/11/2019 M20.012 Mallet finger of left finger(s) Colton Leiva MD 02/05/2019 M94.0 Chondrocostal junction syndrome [Tietze] Kenny Howe MD 12/27/2018 Z23 Encounter for immunization Nurse Schedule Loc 73 10/18/2018 K05.01 Acute gingivitis, non-plaque induced Kenny Howe MD 10/01/2018 I80.00 Phlebitis and thrombophlebitis of Kenny Howe MD superficial vessels of [facility] Plan of Treatment 02/15/2019 - Da Mora, MDM20.012 Mallet finger of left finger(s)Follow up: Follow up: 10-14 days postop Functional Status Description No Information Available Mental Status Description No Information Available Referrals Description No Information Available
--- OUTSIDE RECORDS SUMMARY | 2019-03-12 10:05 | XMS REPORT | Continuity of Care Document ---
:1955 External Reference #:[id number] Author Name Kenny Howe MD (transmitted by agent of provider Terri Mack) Address [address] [place] [address] Care Team Providers Name Role Phone Kenny Howe MD - Family Care Team Information Birthing Nurse Medicine Hannah Romeo MD - Care Team Information Birthing Nurse [phone] Ophthalmology Adrian Carey MD - Gastroenterology Care Team Information Birthing Nurse [phone] Duane Brewer MD - Otolaryngology Care Team Information Birthing Nurse [phone] Len Ferguson MD - Plastic Care Team Information Birthing Nurse Surgery Problems Active Problems Provider Date Takotsubo [...] Patient has never smoked Smoking Status Reviewed: 02/05/19 Patient has never smoked Exercise Type/Frequency Does [...] 03/07/2017 100mg Solution Kheti Carley, Rec MD Schmitzulair 1 daily 90tabs Kenny 06/30/2015 10mg Tablets MD Carley Advair Diskus 1 puff twice a day 60units Kenny 06/03/2015 Carley 250-50mcg/Dose Aerosol Calcium 1 tid Kenny 11/06/2014 Carbonate/Vitamind MD Carley 500mg Tablets Meclizine HCL 1 four times a day 30tabs J30.1 Kenny 09/17/2014 25mg as needed vertigo, Howe, Tablets when traveling Levocetirizine 1 every day as 90tabs J30.1 Kenyn 09/09/2014 Dihydrochloride needed Howe, 5mg Tablets Proair [...] Delmy Patton 6.5mg Insert suppository every MD Bhavna other night History Medications Ciprofloxacin HCL 1 by mouth 20tabs K05.01 Kenny Howe, 10/18/2018 - 500mg twice a day 01/24/2019 Tablets Medications Administered in Office Medication SIG Qnty Indications Ordering Provider Date Celestone 3 mg and 3mg Colton Leiva MD 06/16/2016 Injection Immunizations CPT Code Status Date Vaccine Reaction Lot # 08002 Given 12/27/2018 Influ Virus Vaccine, risks and benefits Flu>3yr/ Quadrivalent, Split discussed [id number] Virus, [place] [address] Given 01/29/2014 Pneumococcal Conjugate Vaccine 13 Valent For Intramuscular Use 76816 Given 12/16/2013 Influenza Virus 3Yrs & Over 40577 Given 12/16/2013 Influenza Virus 3Yrs & Over 47132 Given 12/17/2012 Influenza Virus 3Yrs & Over 82353 Given 12/16/2011 Influenza Virus 3Yrs & Over 39141 Given 12/02/2010 Influenza Virus 3Yrs & Over 69419 Given 10/27/2010 Tdap - Tetanus/Diptheria/Acellul ar Pertussis 52862 Given 12/09/2009 Influenza Virus 3Yrs & Over 59857 Given 01/01/2009 Administration Swine Flu Shot 17347 Given 12/11/2008 Influenza Virus 3Yrs & Over 78540 Given 12/06/2007 Influenza Virus 3Yrs & Over 68695 Given 12/26/2006 Influenza Virus 3Yrs & Over 21016 Given 01/12/2006 Influenza Virus 3Yrs & Over 07180 Given 12/30/2004 Influenza Virus 3Yrs & Over 65340 Given 02/18/2003 Pneumonia Vaccine 84341 Given 03/26/2001 Hepatitis A Vaccine Adult Dosage 11654 Given 03/08/2001 Hep B Pediatric/Adolescent 37481 Given 08/14/2000 Hepatitis B Flavia Adoles For Intramuscular Use 48911 Given 08/03/2000 Hepatitis A Vaccine Adult Dosage 60863 Given 07/17/2000 Hepatitis B Flavia Adoles For Intramuscular Use 90022 Given 03/21/2000 Tetanus And Diptheria (Td) For Adult Use Preservative Free 32865 Given 01/11/2000 Influenza Virus 3Yrs & Over 19918 Given 01/17/1995 Flu Vaccine Vital Signs Date Vital Result Comment 02/05/2019 1:55pm Weight 209.00 lb BP Systolic 104 mmHg BP Diastolic 72 mmHg Body Temperature 96.7 F 12/27/2018 10:22am Body Temperature 98.3 F Results Test Acquired Date Facility Test Result H/L Range Note Urine Culture And 01/27/2019 [facility] Urine SEE RESULT [address] [place] [address] [phone] Poc Urinalysis 01/27/2019 [facility] Poc Negative Negative [address] Glucose, [place] [address] Urine [phone] Poc Bilirubin, Urine Negative Negative Poc Ketone, Urine Negative Negative Poc Specific [place], Urine 1.020 Normal 1.010-1.030 Poc Blood, Urine Trace-lysed Abnormal Negative Poc pH, Urine 5.5 Normal 5-9 Poc Protein, Urine Negative Negative Poc Urobilinogen, Urine 0.2 Negative Poc Nitrite, Urine Negative Negative Poc Leukocytes, Urine 1+ Abnormal Negative Poc Color, Urine Yellow Poc Clarity, Urine Clear 2 1 SEE RESULT BELOW Name: BHAVNA POSEY : [address]: Maynor Mullen MD Acct: [id number] Unit: [id number] AGE: 63 Location: [facility] Re01/27/19 SEX: F Status: DEP ER SPEC: [id number] LORAINE: 01/27/[address] [facility] [address]: Maynor Mullen MD REQ: [id number] RECD: 01/27/19 STATUS: [facility] DR: Kenny Howe MD _ SOURCE: URINE SPDESC: ORDERED: Urine Culture Procedure Result Reported Site Urine Culture Final 01/29/19- 0844 ML Organism 1 ESCHERICHIA COLI [place] Count >100,000 (Many) CFU/ML 1. ESCHERICHIA COLI [...] . END OF REPORT DEPARTMENT OF PATHOLOGY, [address] [place] [address] Jose Shultz M.D. Director [facility] # [id number] 2 Bioanalyst: [id number] Procedures Date Code Description Status 06/28/2018 [id number] Mammogram Completed 05/10/2018 [id number] Mammogram Completed 03/16/2018 [id number] Diabetic Retinal Eye Exam Completed Medical Devices Description No Information Available Encounters Type Date Location Provider Dx Diagnosis Office Visit 10/18/2018 [facility] Kenny K05.01 Acute gingivitis, 3:30p MD Carley non-plaque induced Office Visit 10/01/2018 [facility] Kenny I80.00 Phlbts and 11:45a MD Carley thombophlb of superfic vessels of [facility] low extrm Assessments Date Code Description Provider 02/05/2019 M94.0 Chondrocostal junction syndrome [Tietze] Kenny Howe MD 02/05/2019 K21.9 Gastro-esophageal reflux disease without Kenny Howe MD esophagitis 12/27/2018 Z23 Encounter for immunization Nurse Schedule Loc 73 10/18/2018 K05.01 Acute gingivitis, non-plaque induced Kenny Howe MD 10/01/2018 I80.00 Phlebitis and thrombophlebitis of Kenny Howe MD superficial vessels of [facility] Plan of Treatment 02/05/2019 - Kenny Howe, MDM94.0 Chondrocostal junction syndrome [Tietze ]New Medication:Celecoxib 200 mg - 1 by mouth every dayNew Labs:CBC Auto Diff, Ordered: 02/05/19K21.9 Gastro-esophageal reflux disease without esophagitis Functional Status Description No Information Available Mental Status Description No Information Available Referrals Description No Information Available
[2019-03-12 10:28] VITALS: BP 135/63
--- NOTE | 2019-03-12 10:47 | UC ---
Truncal Trauma HPI - HPI Summary HPI Summary: 1.pain left mid ribs x 2 weeks pain is 6 out of 10 , worse with movements, better with rest and antiinflammatories, no sob , no cough 2. bilateral heel pain x 2 months, pain is 6 out of 10 , sharp , worse with walking, better with celebex no known injures - History Of Current Complaint Chief Complaint: UCGeneralIllness Stated Complaint: RIB/HIP PAIN Time Seen by Provider: 03/12/19 10:32 Hx Obtained From: Patient Hx Last Menstrual Period: 2009 Onset/Duration: Gradual Onset, Lasting Weeks - 2, Still Present Severity Initially: Moderate Severity Currently: Moderate Pain Intensity: 6 Mechanism Of Injury: Twisted Aggravating Factor(s): Movement, Deep Breathing Alleviating factor(s): OTC Medication Associated Signs And Symptoms: Negative: SOB, Chest Pain, Cough, Hematuria, Abdominal Pain, Fever, Nausea, Vomiting - Allergies/Home Medications Allergies/Adverse Reactions: Allergies Allergy/AdvReac Type Severity Reaction Status Date / Time azithromycin Allergy Rash Verified 03/12/19 10:20 erythromycin base Allergy Rash Verified 03/12/19 10:20 Penicillins Allergy Rash Verified 03/12/19 10:20 sulfamethoxazole Allergy Rash Verified 03/12/19 10:20 [From Bactrim] trimethoprim [From Bactrim] Allergy Rash Verified 03/12/19 10:20 PMH/Surg Hx/FS Hx/Imm Hx Endocrine History: Diabetes Respiratory History: Asthma Cancer History: Breast Cancer - Surgical History Surgical History: Yes Surgery Procedure, Year, and Place: left mastectomy with reconstruction 1997. sinus surgery 2010. Novasure 2010. varicose vein surgery about 1 year ago. LEFT breast implant removed august 2018, NOT REPLACED - Family History Known Family History: Positive: None, Non-Contributory Family History: no known cardio-vascular issues run in family lineage - Social History Alcohol Use: Weekly Alcohol Amount: WINE Substance Use Type: None Smoking Status (MU): Never Smoked Tobacco Have You Smoked in the Last Year: No - Immunization History Most Recent Influenza Vaccination: current Most Recent Pneumonia Vaccination: current Review of Systems All Other Systems Reviewed And Are Negative: Yes Constitutional: Positive: Negative Skin: Positive: Negative Eyes: Positive: Negative ENT: Positive: Negative Is Patient Immunocompromised?: No Physical Exam Triage Information Reviewed: Yes Appearance: Well-Appearing, No Pain Distress, Obese Vital Signs: Initial Vital Signs Temp 98.1 F 03/12/19 10:23 Pulse 84 03/12/19 10:23 Resp 16 03/12/19 10:23 BP 135/63 03/12/19 10:23 Pulse Ox 99 03/12/19 10:23 Vital Signs Reviewed: Yes Eye Exam: Normal Eyes: Positive: Conjunctiva Clear ENT: Positive: Normal ENT inspection, Hearing grossly normal, Pharynx normal Neck: Positive: Supple, Nontender, No Lymphadenopathy Respiratory: Positive: Chest non-tender, Lungs clear, Normal breath sounds Cardiovascular: Positive: RRR, No Murmur, Pulses Normal Musculoskeletal: Positive: Other: - tenderness lateral left mid ribs, bilateral feet: + tenderness platar foot/ heels, no swelling, no erythema Diagnostics - Radiology No standard instances Radiology Interpretation Completed By: Radiologist Summary of Radiographic Findings: xray report left ribs: IMPRESSION: NO DISPLACED RIB FRACTURE OR PNEUMOTHORAX. Truncal Trauma Course/Dx - Differential Dx/Diagnosis Provider Diagnosis: Intercostal muscle strain, Plantar fasciitis, bilateral Discharge ED - Sign-Out/Discharge Documenting (check all that apply): Patient Departure All imaging exams completed and their final reports reviewed: Yes - Discharge Plan Condition: Stable Disposition: HOME Patient Education Materials: Plantar Fasciitis Exercises (GEN), Plantar Fasciitis (ED), Rib Contusion (ED) Referrals: Kenny Howe MD [Primary Care Provider] - 2 Weeks - Billing Disposition and Condition Condition: STABLE Disposition: Home
== END 2019-03-12 11:13 | disposition home or self-care (01) ==
LOC: UCCORT 09:44
DX: S29.011A Strain of muscle and tendon of front wall of thorax, initial encounter (principal); M72.2 Plantar fascial fibromatosis; J45.909 Unspecified asthma, uncomplicated; E11.9 Type 2 diabetes mellitus without complications; E66.9 Obesity, unspecified; Z88.1 Allergy status to other antibiotic agents; Z88.0 Allergy status to penicillin; Z88.2 Allergy status to sulfonamides; Z85.3 Personal history of malignant neoplasm of breast; X58.XXXA Exposure to other specified factors, initial encounter; Y92.9 Unspecified place or not applicable
CPT/HCPCS: 99212; G0463